=== PATIENT | male | born 1960 | race Caucasian/White ===

== ENCOUNTER 2024-03-18 11:24 | Inpatient (IN) ==
[2024-03-18] MEDS ORDERED: IOPAMIDOL 100 ML BOTTLE IV ONE (11:25)
[2024-03-18] MEDS: 0.9 % SODIUM CHLORIDE 1,000 ML IV ONE (11:39)
[2024-03-18 12:06] LABS: Basophils # (Auto) 0.01 K/mcL (0.00-0.30); Basophils % (Auto) 0.2 % (0.0-2.0); Eosinophils # (Auto) 0 K/mcL (0.00-0.70); Eosinophils % (Auto) 0 % (0.0-7.0); Hematocrit 38.3 % (40.1-51.0); Hemoglobin 13.5 g/dL (13.7-17.5); Lymphocytes # (Auto) 1.66 K/mcL (1.50-4.80); Lymphocytes % (Auto) 32.9 % (15.5-49.0); Mean Cell Volume 103.8 fL (80.0-100.0); Mean Corpuscular HGB Conc 35.2 g/dL (31.0-36.0); Mean Platelet Volume 8.5 fL (8.8-12.5); Monocytes # (Auto) 0.38 K/mcL (0.10-0.90); Monocytes % (Auto) 7.5 % (1.0-12.0); Neutrophils % (Auto) 59.2 % (38.0-78.0); Platelet Count 101 K/mcL (140-440); RBC 3.69 M/mcL (4.63-6.08); WBC 5.1 K/mcL (4.5-11.0)
[2024-03-18 12:19] LABS: ALT/SGPT 28 U/L (<40); AST/SGOT 102 U/L (<40); Albumin 4.1 gm/dL (3.2-5.2); Albumin/Globulin Ratio 1.2 (1.0-2.3); Alkaline Phosphatase 130 U/L (39-117); Bilirubin,Total 2.3 mg/dL (0.1-1.0); Blood Urea Nitrogen 4 mg/dL (8-23); Calcium 7.9 mg/dL (8.6-10.4); Carbon Dioxide 17 mmol/L (22-30); Chloride 96 mmol/L (96-108); Globulin 3.3 gm/dL (2.2-3.7); Glomerular Filtration Rate 114; Glucose 67 mg/dL (70-105); Thyroid Stimulating Hormone 1.71 uIU/mL (0.27-5.01)
[2024-03-18] MEDS: HYDROcodone/APAP 5/325MG TABLET PO ONE (12:21)
[2024-03-18] MEDS: LORazepam 2 MG/ML VIAL IV ONE ×2 (12:21→20:04)
[2024-03-18] MEDS: cloNIDine HCL 0.1 MG TABLET PO SCH (12:22)
[2024-03-18 12:48] LABS: Free T4 (Free Thyroxine) 1.36 ng/dL (0.93-1.70)
[2024-03-18] MEDS: MAGNESIUM SULFATE 2 GM/50 ML BAG IV ONE (12:53)
[2024-03-18] MEDS: POTASSIUM CHLORIDE 20 MEQ TABLET PO ONE ×3 (13:47→22:30)
[2024-03-18] MEDS: MAGNESIUM OXIDE 400 MG TABLET PO ONE (13:47)
[2024-03-18] MEDS: POTASSIUM CHLORIDE 10 MEQ in DEXTROSE 5% IN WATER 250 ML IV ONE (13:54)
[2024-03-18] MEDS: LORazepam (PP) 1 MG TABLET (#4) PO ONE (16:57)
[2024-03-18] MEDS: HYDROcodone/APAP (PP) 5/325MG TABLET (#4) PO ONE (16:58)
[2024-03-18] MEDS: ONDANSETRON 4 MG/2 ML VIAL IV ONE (17:27)
[2024-03-18] MEDS ORDERED: LORazepam 2 MG/ML VIAL IV PRN (17:40)
[2024-03-18] MEDS ORDERED: hydrOXYzine 25 MG TABLET PO PRN (17:40)
[2024-03-18 17:58] LABS: Appearance,Urine Clear (Clear); Bacteria,Urine 0 /hpf (0); Bilirubin,Urine Negative (Negative); Color,Urine Yellow; Culture Indicated,Urine No; Glucose,Urine (UA) Negative (Negative); Ketones,Urine Negative (Negative); Leukocyte Esterase,Urine Negative /uL (Negative); Nitrate,Urine Negative (Negative); Protein,Urine Negative (Negative); Urine Blood Trace-intact ery/mcL (Negative); Urine RBC 0 /hpf (0-3); Urine Squamous Epithelial Cell 0 /hpf (0-4); Urine WBC 1 /hpf (0-4); Urobilinogen,Urine Normal
[2024-03-18] MEDS: THIAMINE 200 MG in 0.9 % SODIUM CHLORIDE 50 ML IV ONE (18:41)
[2024-03-18] MEDS ORDERED: NALOXONE HCL 0.4 MG/ML VIAL IV PRN (19:54)
[2024-03-18] MEDS ORDERED: IPRATROPIUM/ALBUTEROL 3 ML AMPUL.NEB NEB PRN (19:54)
[2024-03-18] MEDS ORDERED: ONDANSETRON 4 MG/2 ML VIAL IV PRN (19:54)
[2024-03-18] MEDS: THIAMINE 100 MG/ML VIAL ONE (19:55)
[2024-03-18] MEDS: MAGNESIUM SULFATE 2 GM/50 ML BAG IV SCH (19:56)
[2024-03-18] MEDS: LACTATED RINGERS 1,000 ML IV SCH (20:04)
[2024-03-18 21:29] LABS: Blood Urea Nitrogen 4 mg/dL (8-23); Calcium 7.1 mg/dL (8.6-10.4); Carbon Dioxide 19 mmol/L (22-30); Chloride 102 mmol/L (96-108); Glomerular Filtration Rate 125; Glucose 95 mg/dL (70-105); Phosphorous 1.9 mg/dL (2.5-4.5)
[2024-03-18] MEDS: oxyCODONE IR 5 MG TABLET PO SCH (21:36)
[2024-03-18] MEDS: 0.9 % SODIUM CHLORIDE 10 ML SYRINGE IV SCH (21:51)
[2024-03-18] MEDS: SODIUM PHOSPHATE 15 MMOL in DEXTROSE 5% IN WATER 250 ML IV ONE (23:00)
[2024-03-19 06:58] LABS: Phosphorous 2.5 mg/dL (2.5-4.5)
[2024-03-19 07:17] LABS: Basophils # (Auto) 0.01 K/mcL (0.00-0.30); Basophils % (Auto) 0.3 % (0.0-2.0); Eosinophils # (Auto) 0 K/mcL (0.00-0.70); Eosinophils % (Auto) 0 % (0.0-7.0); Hematocrit 32.2 % (40.1-51.0); Hemoglobin 11.3 g/dL (13.7-17.5); Lymphocytes # (Auto) 0.95 K/mcL (1.50-4.80); Lymphocytes % (Auto) 25.8 % (15.5-49.0); Mean Cell Volume 104.9 fL (80.0-100.0); Mean Corpuscular HGB Conc 35.1 g/dL (31.0-36.0); Monocytes # (Auto) 0.38 K/mcL (0.10-0.90); Monocytes % (Auto) 10.3 % (1.0-12.0); Neutrophils % (Auto) 63.3 % (38.0-78.0); Platelet Count 64 K/mcL (140-440); RBC 3.07 M/mcL (4.63-6.08); WBC 3.7 K/mcL (4.5-11.0)
[2024-03-19] MEDS: HYDROXYCHLOROQUINE 200 MG TABLET PO SCH (08:04)
[2024-03-19] MEDS: GABAPENTIN 400 MG CAPSULE PO SCH (08:04)
[2024-03-19 08:17] LABS: ALT/SGPT 18 U/L (<40); AST/SGOT 65 U/L (<40); Albumin 3.4 gm/dL (3.2-5.2); Albumin/Globulin Ratio 1.4 (1.0-2.3); Alkaline Phosphatase 93 U/L (39-117); Bilirubin,Total 1.9 mg/dL (0.1-1.0); Blood Urea Nitrogen 4 mg/dL (8-23); Calcium 7.2 mg/dL (8.6-10.4); Carbon Dioxide 21 mmol/L (22-30); Chloride 102 mmol/L (96-108); Globulin 2.4 gm/dL (2.2-3.7); Glomerular Filtration Rate 114; Glucose 103 mg/dL (70-105)
[2024-03-19] MEDS: FERROUS SULFATE 325 MG TABLET PO SCH (08:52)
[2024-03-19] MEDS: ALLOPURINOL 300 MG TABLET PO SCH (08:52)
[2024-03-19] MEDS: CITALOPRAM 20 MG TABLET PO SCH (08:52)
[2024-03-19] MEDS: MULTIVIT,THER IRON,CA,FA & MIN 1 TABLET PO SCH (08:52)
[2024-03-19] MEDS: THIAMINE 200 MG in 0.9 % SODIUM CHLORIDE 50 ML IV SCH (11:33)
[2024-03-19] MEDS: METHOCARBAMOL 500 MG TABLET PO PRN (17:38)
[2024-03-19] MEDS: TAMSULOSIN 0.4 MG CAPSULE PO SCH (20:11)
[2024-03-20 07:17] LABS: Basophils # (Auto) 0.01 K/mcL (0.00-0.30); Basophils % (Auto) 0.3 % (0.0-2.0); Eosinophils # (Auto) 0 K/mcL (0.00-0.70); Eosinophils % (Auto) 0 % (0.0-7.0); Hematocrit 30.2 % (40.1-51.0); Hemoglobin 10.3 g/dL (13.7-17.5); Lymphocytes # (Auto) 0.78 K/mcL (1.50-4.80); Lymphocytes % (Auto) 23.6 % (15.5-49.0); Mean Cell Volume 108.6 fL (80.0-100.0); Mean Corpuscular HGB Conc 34.1 g/dL (31.0-36.0); Mean Platelet Volume 9.9 fL (8.8-12.5); Monocytes # (Auto) 0.32 K/mcL (0.10-0.90); Monocytes % (Auto) 9.7 % (1.0-12.0); Neutrophils % (Auto) 66.1 % (38.0-78.0); Platelet Count 53 K/mcL (140-440); RBC 2.78 M/mcL (4.63-6.08); Red Cell Distribution Width 12.8 % (11.5-14.5); WBC 3.3 K/mcL (4.5-11.0)
[2024-03-20 07:58] LABS: ALT/SGPT 16 U/L (<40); AST/SGOT 54 U/L (<40); Albumin 3.2 gm/dL (3.2-5.2); Albumin/Globulin Ratio 1.4 (1.0-2.3); Alkaline Phosphatase 89 U/L (39-117); Bilirubin,Total 2.1 mg/dL (0.1-1.0); Blood Urea Nitrogen 3 mg/dL (8-23); Calcium 7.4 mg/dL (8.6-10.4); Carbon Dioxide 19 mmol/L (22-30); Chloride 98 mmol/L (96-108); Globulin 2.3 gm/dL (2.2-3.7); Glomerular Filtration Rate 114; Glucose 81 mg/dL (70-105)
[2024-03-20] MEDS: THIAMINE 100 MG/ML VIAL ONE (08:51)
[2024-03-20] MEDS: MAGNESIUM SULFATE 2 GM/50 ML BAG IV SCH (09:57)
[2024-03-21 06:55] LABS: Basophils # (Auto) 0 K/mcL (0.00-0.30); Basophils % (Auto) 0 % (0.0-2.0); Eosinophils # (Auto) 0 K/mcL (0.00-0.70); Eosinophils % (Auto) 0 % (0.0-7.0); Hematocrit 31.1 % (40.1-51.0); Hemoglobin 10.7 g/dL (13.7-17.5); Lymphocytes # (Auto) 0.84 K/mcL (1.50-4.80); Lymphocytes % (Auto) 20.7 % (15.5-49.0); Mean Cell Volume 106.1 fL (80.0-100.0); Mean Corpuscular HGB Conc 34.4 g/dL (31.0-36.0); Mean Platelet Volume 9.4 fL (8.8-12.5); Monocytes # (Auto) 0.35 K/mcL (0.10-0.90); Monocytes % (Auto) 8.6 % (1.0-12.0); Neutrophils % (Auto) 70.2 % (38.0-78.0); Platelet Count 60 K/mcL (140-440); RBC 2.93 M/mcL (4.63-6.08); Red Cell Distribution Width 12.8 % (11.5-14.5); WBC 4.1 K/mcL (4.5-11.0)
[2024-03-21 07:25] LABS: ALT/SGPT 13 U/L (<40); AST/SGOT 44 U/L (<40); Albumin 3.3 gm/dL (3.2-5.2); Albumin/Globulin Ratio 1.3 (1.0-2.3); Alkaline Phosphatase 98 U/L (39-117); Bilirubin,Total 2.2 mg/dL (0.1-1.0); Blood Urea Nitrogen 3 mg/dL (8-23); Calcium 7.9 mg/dL (8.6-10.4); Carbon Dioxide 21 mmol/L (22-30); Chloride 95 mmol/L (96-108); Globulin 2.5 gm/dL (2.2-3.7); Glomerular Filtration Rate 125; Glucose 88 mg/dL (70-105)
[2024-03-21] MEDS: ERGOCALCIFEROL (VITAMIN D2) 50,000 UNIT CAPSULE PO SCH (08:23)
[2024-03-21] MEDS: THIAMINE 100 MG TABLET PO SCH (08:24)
[2024-03-21] MEDS: POTASSIUM CHLORIDE 20 MEQ TABLET PO SCH (10:31)
[2024-03-21] MEDS: MAGNESIUM SULFATE 24.36 MEQ in DEXTROSE 5% IN WATER 50 ML IV ONE (10:31)
[2024-03-21 14:04] LABS: Blood Urea Nitrogen 6 mg/dL (8-23); Calcium 8.2 mg/dL (8.6-10.4); Carbon Dioxide 24 mmol/L (22-30); Chloride 93 mmol/L (96-108); Glomerular Filtration Rate 114; Glucose 135 mg/dL (70-105)
[2024-03-21] MEDS: 0.9 % SODIUM CHLORIDE 1,000 ML IV SCH (14:23)
[2024-03-21] MEDS: POTASSIUM CHLORIDE 20 MEQ TABLET PO ONE ×2 (14:24→18:53)
[2024-03-21 22:38] LABS: Blood Urea Nitrogen 6 mg/dL (8-23); Calcium 8.2 mg/dL (8.6-10.4); Carbon Dioxide 21 mmol/L (22-30); Chloride 97 mmol/L (96-108); Glomerular Filtration Rate 125; Glucose 139 mg/dL (70-105)
[2024-03-21] MEDS: SODIUM CHLORIDE 1 GM TABLET PO ONE (23:48)
[2024-03-22 06:33] LABS: ALT/SGPT 11 U/L (<40); AST/SGOT 33 U/L (<40); Albumin/Globulin Ratio 1.2 (1.0-2.3); Alkaline Phosphatase 106 U/L (39-117); Bilirubin,Total 1.4 mg/dL (0.1-1.0); Blood Urea Nitrogen 5 mg/dL (8-23); Calcium 8.1 mg/dL (8.6-10.4); Carbon Dioxide 22 mmol/L (22-30); Chloride 102 mmol/L (96-108); Globulin 2.6 gm/dL (2.2-3.7); Glomerular Filtration Rate 125; Glucose 92 mg/dL (70-105)
[2024-03-22 06:40] LABS: Basophils # (Auto) 0.01 K/mcL (0.00-0.30); Basophils % (Auto) 0.3 % (0.0-2.0); Eosinophils # (Auto) 0 K/mcL (0.00-0.70); Eosinophils % (Auto) 0 % (0.0-7.0); Hematocrit 28.9 % (40.1-51.0); Hemoglobin 9.8 g/dL (13.7-17.5); Lymphocytes # (Auto) 1.18 K/mcL (1.50-4.80); Lymphocytes % (Auto) 30.7 % (15.5-49.0); Mean Cell Volume 108.2 fL (80.0-100.0); Mean Corpuscular HGB Conc 33.9 g/dL (31.0-36.0); Mean Platelet Volume 9.2 fL (8.8-12.5); Neutrophils % (Auto) 55.2 % (38.0-78.0); Platelet Count 62 K/mcL (140-440); RBC 2.67 M/mcL (4.63-6.08); Red Cell Distribution Width 13.1 % (11.5-14.5); WBC 3.8 K/mcL (4.5-11.0)
[2024-03-22] MEDS: MAGNESIUM SULFATE 2 GM/50 ML BAG IV SCH (08:42)
[2024-03-22] MEDS: MAGNESIUM SULFATE 1 GM/100 ML BAG IV ONE (09:32)
== END 2024-03-22 14:25 | disposition home or self-care (01) | DRG 897 ==
LOC: ED 11:24 → ICU 19:45
PROVIDERS: ADMIT Student in an Organized Health Care Education/Training Program; ATTEND Student in an Organized Health Care Education/Training Program

== ENCOUNTER 2024-12-03 13:34 | Inpatient (IN) ==
[2024-12-03] MEDS: 0.9 % SODIUM CHLORIDE 1,000 ML IV ONE (14:01)
[2024-12-03 14:38] LABS: Basophils # (Auto) 0 K/mcL (0.00-0.30); Basophils % (Auto) 0 % (0.0-2.0); Eosinophils # (Auto) 0 K/mcL (0.00-0.70); Eosinophils % (Auto) 0 % (0.0-7.0); Hematocrit 34.3 % (40.1-51.0); Lymphocytes % (Auto) 8.2 % (15.5-49.0); Mean Cell Volume 102.4 fL (80.0-100.0); Mean Platelet Volume 9.5 fL (8.8-12.5); Monocytes # (Auto) 0.48 K/mcL (0.10-0.90); Monocytes % (Auto) 9.8 % (1.0-12.0); Neutrophils % (Auto) 81.6 % (38.0-78.0); Platelet Count 72 K/mcL (140-440); RBC 3.35 M/mcL (4.63-6.08); Red Cell Distribution Width 14.7 % (11.5-14.5); WBC 4.9 K/mcL (4.5-11.0)
[2024-12-03 14:54] LABS: ALT/SGPT 42 U/L (<40); AST/SGOT 96 U/L (<40); Albumin/Globulin Ratio 1.6 (1.0-2.3); Alkaline Phosphatase 81 U/L (39-117); Bilirubin,Total 3.4 mg/dL (0.1-1.0); Blood Urea Nitrogen 15 mg/dL (8-23); Carbon Dioxide 20 mmol/L (22-30); Chloride 84 mmol/L (96-108); Globulin 2.5 gm/dL (2.2-3.7); Glomerular Filtration Rate 114; Glucose 115 mg/dL (70-105); Potassium 3.6 mmol/L (3.3-5.1); Sodium 123 mmol/L (133-145)
[2024-12-03] MEDS: MAGNESIUM SULFATE 2 GM/50 ML BAG IV ONE (15:13)
[2024-12-03 15:16] LABS: Creatine Kinase 852 U/L (24-195)
[2024-12-03 15:47] LABS: Alcohol, Blood < 10.1 mg/dL; Alcohol,Blood < 0.010 gm/dL (<0.010)
[2024-12-03] MEDS: 0.9 % SODIUM CHLORIDE 500 ML IV ONE (15:51)
[2024-12-03] MEDS: KETOROLAC 30 MG/ML VIAL IV ONE (16:31)
[2024-12-03 20:01] LABS: Amphetamine Screen,Urine None detected; Appearance,Urine CLEAR (Clear); Barbiturate Screen,Urine None detected; Benzodiazepines Screen,Urine None detected; Bilirubin,Urine Negative (Negative); Cannabinoid Screen,Urine None detected; Cocaine Screen,Urine None detected; Color,Urine AMBER; Fentanyl, Urine Screen None Detected; Glucose,Urine (UA) Negative (Negative); Ketones,Urine 5 mg/dL (Negative); Leukocyte Esterase,Urine Negative /uL (Negative); Mucus,Urine MANY /hpf; Nitrate,Urine Negative (Negative); Opiate Screen,Urine Suspect Positive; Oxycodone, Urine Screen None detected; Phencyclidine Screen,Urine None detected; Protein,Urine 100 mg/dL (Negative); Specific Gravity,Urine 1.026 (1.000-1.035); Urine Blood Negative (Negative); Urine Hyaline Cast 13 /lph (0-2); Urine RBC 5 /hpf (0-3); Urine Squamous Epithelial Cell 0 /hpf (0-4); Urine WBC 3 /hpf (0-4)
[2024-12-03] MEDS: THIAMINE 100 MG/ML VIAL ONE (20:05)
[2024-12-03] MEDS: THIAMINE 500 MG in 0.9 % SODIUM CHLORIDE 50 ML IV ONE (20:05)
[2024-12-03] MEDS: HYDROmorphone 1 MG/ML SYRINGE IV ONE (20:05)
[2024-12-03] MEDS ORDERED: ALBUTEROL SULFATE 2.5 MG/3 ML NEBULIZER NEB PRN (21:36)
[2024-12-03] MEDS ORDERED: ACETAMINOPHEN 325 MG TABLET PO PRN (21:36)
[2024-12-03] MEDS: THIAMINE 100 MG in 0.9 % SODIUM CHLORIDE 50 ML IV SCH (22:09)
[2024-12-03] MEDS: LORazepam 2 MG/ML VIAL IV PRN (22:13)
[2024-12-03] MEDS: METOPROLOL TARTRATE 5 MG/5 ML VIAL IV PRN (22:13)
[2024-12-03] MEDS: 0.9 % SODIUM CHLORIDE 10 ML SYRINGE IV SCH ×2 (22:13→22:14)
[2024-12-03] MEDS: SENNOSIDES 1 TABLET PO SCH (22:13)
[2024-12-03] MEDS: DOCUSATE SODIUM 100 MG CAPSULE PO SCH (22:14)
[2024-12-03] MEDS: METOPROLOL TARTRATE 5 MG/5 ML VIAL IV ONE (22:14)
[2024-12-03] MEDS: 0.9 % SODIUM CHLORIDE 1,000 ML IV SCH (22:28)
[2024-12-03] MEDS: METOPROLOL SUCCINATE 50 MG TAB.XL.24H PO SCH (22:51)
[2024-12-03] MEDS: METOPROLOL SUCCINATE 50 MG TAB.XL.24H PO ONE (22:56)
[2024-12-04 07:05] LABS: Basophils # (Auto) 0.01 K/mcL (0.00-0.30); Basophils % (Auto) 0.2 % (0.0-2.0); Eosinophils # (Auto) 0 K/mcL (0.00-0.70); Eosinophils % (Auto) 0 % (0.0-7.0); Hematocrit 30.9 % (40.1-51.0); Hemoglobin 10.9 g/dL (13.7-17.5); Lymphocytes # (Auto) 0.75 K/mcL (1.50-4.80); Lymphocytes % (Auto) 17.9 % (15.5-49.0); Mean Cell Volume 104.7 fL (80.0-100.0); Mean Corpuscular HGB Conc 35.3 g/dL (31.0-36.0); Mean Platelet Volume 9.7 fL (8.8-12.5); Monocytes # (Auto) 0.46 K/mcL (0.10-0.90); Neutrophils % (Auto) 70.7 % (38.0-78.0); Platelet Count 73 K/mcL (140-440); RBC 2.95 M/mcL (4.63-6.08); WBC 4.2 K/mcL (4.5-11.0)
[2024-12-04 07:14] LABS: ALT/SGPT 38 U/L (<40); AST/SGOT 89 U/L (<40); Albumin 3.7 gm/dL (3.2-5.2); Albumin/Globulin Ratio 1.5 (1.0-2.3); Alkaline Phosphatase 72 U/L (39-117); Bilirubin,Direct 1.3 mg/dL (<0.3); Bilirubin,Total 2.8 mg/dL (0.1-1.0); Blood Urea Nitrogen 19 mg/dL (8-23); Calcium 8.6 mg/dL (8.6-10.4); Carbon Dioxide 20 mmol/L (22-30); Chloride 91 mmol/L (96-108); Creatine Kinase 639 U/L (24-195); Globulin 2.4 gm/dL (2.2-3.7); Glomerular Filtration Rate 105; Glucose 80 mg/dL (70-105); Lactate Dehydrogenase 346 U/L (135-225); Phosphorous 2.4 mg/dL (2.5-4.5); Potassium 3.5 mmol/L (3.3-5.1); Sodium 127 mmol/L (133-145); Triglycerides 77 mg/dL (<150); Uric Acid 2.1 mg/dL (2.5-8.0)
[2024-12-04 07:23] LABS: INR 1.5 (0.9-1.1); Prothrombin Time 18.8 sec (11.9-14.5)
[2024-12-04] MEDS: THIAMINE 300 MG in 0.9 % SODIUM CHLORIDE 50 ML IV SCH (07:34)
[2024-12-04] MEDS: DIAZEPAM 5 MG TABLET PO SCH (08:43)
[2024-12-04] MEDS: MULTIVIT,THER IRON,CA,FA & MIN 1 TABLET PO SCH (08:43)
[2024-12-04] MEDS: FOLIC ACID 1 MG TABLET PO SCH (08:43)
[2024-12-04] MEDS ORDERED: THIAMINE 100 MG in 0.9 % SODIUM CHLORIDE 50 ML IV SCH (09:00)
[2024-12-04] MEDS ORDERED: METOPROLOL SUCCINATE 50 MG TAB.XL.24H PO SCH (21:00)
[2024-12-05 07:47] LABS: Basophils # (Auto) 0.01 K/mcL (0.00-0.30); Basophils % (Auto) 0.3 % (0.0-2.0); Eosinophils # (Auto) 0 K/mcL (0.00-0.70); Eosinophils % (Auto) 0 % (0.0-7.0); Hematocrit 30.7 % (40.1-51.0); Hemoglobin 10.6 g/dL (13.7-17.5); Lymphocytes # (Auto) 0.92 K/mcL (1.50-4.80); Lymphocytes % (Auto) 26.1 % (15.5-49.0); Mean Cell Volume 106.2 fL (80.0-100.0); Mean Corpuscular HGB Conc 34.5 g/dL (31.0-36.0); Mean Platelet Volume 9.1 fL (8.8-12.5); Monocytes # (Auto) 0.43 K/mcL (0.10-0.90); Monocytes % (Auto) 12.2 % (1.0-12.0); Neutrophils % (Auto) 60.8 % (38.0-78.0); Platelet Count 60 K/mcL (140-440); RBC 2.89 M/mcL (4.63-6.08); Red Cell Distribution Width 15.3 % (11.5-14.5); WBC 3.5 K/mcL (4.5-11.0)
[2024-12-05 08:09] LABS: ALT/SGPT 35 U/L (<40); AST/SGOT 73 U/L (<40); Albumin 3.5 gm/dL (3.2-5.2); Albumin/Globulin Ratio 1.6 (1.0-2.3); Alkaline Phosphatase 87 U/L (39-117); Bilirubin,Direct 1.4 mg/dL (<0.3); Bilirubin,Total 2.4 mg/dL (0.1-1.0); Blood Urea Nitrogen 17 mg/dL (8-23); Calcium 8.3 mg/dL (8.6-10.4); Carbon Dioxide 17 mmol/L (22-30); Chloride 98 mmol/L (96-108); Creatine Kinase 265 U/L (24-195); Globulin 2.2 gm/dL (2.2-3.7); Glomerular Filtration Rate 114; Glucose 79 mg/dL (70-105); Lactate Dehydrogenase 290 U/L (135-225); Phosphorous 2.4 mg/dL (2.5-4.5); Potassium 3.4 mmol/L (3.3-5.1); Sodium 131 mmol/L (133-145); Triglycerides 63 mg/dL (<150); Uric Acid 2.6 mg/dL (2.5-8.0)
[2024-12-05] MEDS ORDERED: METOPROLOL SUCCINATE 50 MG TAB.XL.24H PO SCH (09:00)
[2024-12-05] MEDS: POTASSIUM CHLORIDE 20 MEQ PACKET PO SCH (10:21)
[2024-12-05] MEDS: MAGNESIUM OXIDE 400 MG TABLET PO SCH (10:21)
[2024-12-05] MEDS: CITALOPRAM 20 MG TABLET PO SCH (10:21)
[2024-12-05] MEDS: ALLOPURINOL 300 MG TABLET PO SCH (10:21)
[2024-12-05] MEDS: HYDROXYCHLOROQUINE 200 MG TABLET PO SCH (10:21)
[2024-12-05] MEDS: FERROUS SULFATE 325 MG TABLET PO SCH (10:21)
[2024-12-05] MEDS: METHOCARBAMOL 500 MG TABLET PO SCH (10:21)
[2024-12-05] MEDS: MAGNESIUM SULFATE 1 GM/100 ML BAG IV ONE (12:43)
[2024-12-05] MEDS: POTASSIUM CHLORIDE 10 MEQ/100 ML BAG IV SCH (12:43)
[2024-12-05] MEDS: POTASSIUM CHLORIDE 20 MEQ in DEXTROSE 5% IN WATER 250 ML IV ONE (15:19)
[2024-12-05] MEDS: RIVAROXABAN 20 MG TABLET PO SCH (21:14)
[2024-12-05] MEDS: GABAPENTIN 400 MG CAPSULE PO SCH (21:15)
[2024-12-05] MEDS: TAMSULOSIN 0.4 MG CAPSULE PO SCH (21:15)
[2024-12-06 06:17] LABS: Creatine Kinase 134 U/L (24-195)
[2024-12-06 06:18] LABS: ALT/SGPT 31 U/L (<40); AST/SGOT 51 U/L (<40); Albumin 3.4 gm/dL (3.2-5.2); Albumin/Globulin Ratio 1.5 (1.0-2.3); Alkaline Phosphatase 81 U/L (39-117); Bilirubin,Direct 1.3 mg/dL (<0.3); Bilirubin,Total 2.2 mg/dL (0.1-1.0); Blood Urea Nitrogen 12 mg/dL (8-23); Calcium 8.2 mg/dL (8.6-10.4); Carbon Dioxide 18 mmol/L (22-30); Chloride 99 mmol/L (96-108); Globulin 2.3 gm/dL (2.2-3.7); Glomerular Filtration Rate 114; Glucose 124 mg/dL (70-105); Lactate Dehydrogenase 273 U/L (135-225); Phosphorous 2.5 mg/dL (2.5-4.5); Potassium 3.5 mmol/L (3.3-5.1); Sodium 130 mmol/L (133-145); Triglycerides 59 mg/dL (<150); Uric Acid 2.3 mg/dL (2.5-8.0)
[2024-12-06 06:57] LABS: Basophils # (Auto) 0.01 K/mcL (0.00-0.30); Basophils % (Auto) 0.3 % (0.0-2.0); Eosinophils # (Auto) 0 K/mcL (0.00-0.70); Eosinophils % (Auto) 0 % (0.0-7.0); Hematocrit 32.2 % (40.1-51.0); Hemoglobin 10.9 g/dL (13.7-17.5); Lymphocytes # (Auto) 0.72 K/mcL (1.50-4.80); Lymphocytes % (Auto) 22.8 % (15.5-49.0); Mean Cell Volume 108.1 fL (80.0-100.0); Mean Corpuscular HGB Conc 33.9 g/dL (31.0-36.0); Mean Platelet Volume 9.6 fL (8.8-12.5); Monocytes # (Auto) 0.52 K/mcL (0.10-0.90); Monocytes % (Auto) 16.5 % (1.0-12.0); Neutrophils % (Auto) 60.1 % (38.0-78.0); Platelet Count 61 K/mcL (140-440); RBC 2.98 M/mcL (4.63-6.08); Red Cell Distribution Width 15.8 % (11.5-14.5); WBC 3.2 K/mcL (4.5-11.0)
[2024-12-06] MEDS: MAGNESIUM SULFATE 1 GM/100 ML BAG IV ONE (07:22)
[2024-12-06] MEDS ORDERED: METOPROLOL TARTRATE 5 MG/5 ML VIAL IV PRN (10:35)
[2024-12-06] MEDS: 0.9 % SODIUM CHLORIDE 1,000 ML IV ONE (11:19)
[2024-12-06] MEDS: 0.9 % SODIUM CHLORIDE 1,000 ML IV SCH (12:50)
[2024-12-07 07:15] LABS: Basophils # (Auto) 0.01 K/mcL (0.00-0.30); Basophils % (Auto) 0.3 % (0.0-2.0); Eosinophils # (Auto) 0 K/mcL (0.00-0.70); Eosinophils % (Auto) 0 % (0.0-7.0); Hematocrit 35.3 % (40.1-51.0); Hemoglobin 10.8 g/dL (13.7-17.5); Lymphocytes # (Auto) 0.74 K/mcL (1.50-4.80); Lymphocytes % (Auto) 25.1 % (15.5-49.0); Mean Cell Volume 121.3 fL (80.0-100.0); Mean Corpuscular HGB Conc 30.6 g/dL (31.0-36.0); Mean Platelet Volume 9.5 fL (8.8-12.5); Monocytes # (Auto) 0.48 K/mcL (0.10-0.90); Monocytes % (Auto) 16.3 % (1.0-12.0); Platelet Count 60 K/mcL (140-440); RBC 2.91 M/mcL (4.63-6.08); Red Cell Distribution Width 16.4 % (11.5-14.5)
[2024-12-07 07:25] LABS: ALT/SGPT 29 U/L (<40); AST/SGOT 45 U/L (<40); Albumin 3.2 gm/dL (3.2-5.2); Albumin/Globulin Ratio 1.5 (1.0-2.3); Alkaline Phosphatase 90 U/L (39-117); Bilirubin,Direct 1.1 mg/dL (<0.3); Blood Urea Nitrogen 11 mg/dL (8-23); Calcium 8.2 mg/dL (8.6-10.4); Carbon Dioxide 16 mmol/L (22-30); Chloride 101 mmol/L (96-108); Globulin 2.1 gm/dL (2.2-3.7); Glomerular Filtration Rate 114; Glucose 109 mg/dL (70-105); Lactate Dehydrogenase 293 U/L (135-225); Phosphorous 2.6 mg/dL (2.5-4.5); Potassium 3.8 mmol/L (3.3-5.1); Sodium 130 mmol/L (133-145); Triglycerides 47 mg/dL (<150); Uric Acid 2.1 mg/dL (2.5-8.0)
[2024-12-07] MEDS ORDERED: METOPROLOL TARTRATE 5 MG/5 ML VIAL IV PRN (08:24)
[2024-12-07] MEDS: THIAMINE 250 MG in 0.9 % SODIUM CHLORIDE 50 ML IV SCH (08:43)
[2024-12-07] MEDS: SODIUM BICARBONATE 650 MG TABLET PO SCH (09:16)
[2024-12-07] MEDS: POTASSIUM CHLORIDE 20 MEQ TABLET PO SCH (10:55)
[2024-12-07] MEDS: ALBUMIN HUMAN 12.5 GM/50 ML VIAL IV ONE (12:03)
[2024-12-07] MEDS: FUROSEMIDE 40 MG/4 ML VIAL IV ONE (12:52)
[2024-12-07] MEDS: HYDROcodone/APAP 5/325MG TABLET PO PRN (18:22)
[2024-12-08 07:00] LABS: ALT/SGPT 25 U/L (<40); AST/SGOT 35 U/L (<40); Albumin 3.3 gm/dL (3.2-5.2); Albumin/Globulin Ratio 1.4 (1.0-2.3); Alkaline Phosphatase 90 U/L (39-117); Bilirubin,Direct 1.2 mg/dL (<0.3); Bilirubin,Total 2.2 mg/dL (0.1-1.0); Blood Urea Nitrogen 10 mg/dL (8-23); Calcium 8.4 mg/dL (8.6-10.4); Carbon Dioxide 20 mmol/L (22-30); Chloride 98 mmol/L (96-108); Globulin 2.3 gm/dL (2.2-3.7); Glomerular Filtration Rate 114; Glucose 89 mg/dL (70-105); Lactate Dehydrogenase 246 U/L (135-225); Phosphorous 3.4 mg/dL (2.5-4.5); Potassium 3.7 mmol/L (3.3-5.1); Sodium 132 mmol/L (133-145); Triglycerides 45 mg/dL (<150); Uric Acid 2.3 mg/dL (2.5-8.0)
[2024-12-08] MEDS: LOPERAMIDE 2 MG CAPSULE PO ONE (10:03)
[2024-12-08] MEDS: FUROSEMIDE 40 MG/4 ML VIAL IV ONE (10:03)
[2024-12-08] MEDS: SODIUM BICARBONATE 650 MG TABLET PO SCH (10:03)
[2024-12-08] MEDS: ALBUMIN HUMAN 12.5 GM/50 ML VIAL IV ONE (10:05)
[2024-12-08] MEDS: MAGNESIUM SULFATE 2 GM/50 ML BAG IV ONE (10:08)
[2024-12-09 06:13] LABS: ALT/SGPT 24 U/L (<40); AST/SGOT 31 U/L (<40); Albumin 3.4 gm/dL (3.2-5.2); Albumin/Globulin Ratio 1.5 (1.0-2.3); Alkaline Phosphatase 106 U/L (39-117); Bilirubin,Direct 1.1 mg/dL (<0.3); Bilirubin,Total 1.9 mg/dL (0.1-1.0); Blood Urea Nitrogen 11 mg/dL (8-23); Calcium 8.6 mg/dL (8.6-10.4); Carbon Dioxide 25 mmol/L (22-30); Chloride 91 mmol/L (96-108); Globulin 2.3 gm/dL (2.2-3.7); Glomerular Filtration Rate 114; Glucose 83 mg/dL (70-105); Lactate Dehydrogenase 241 U/L (135-225); Phosphorous 4.1 mg/dL (2.5-4.5); Potassium 3.6 mmol/L (3.3-5.1); Sodium 128 mmol/L (133-145); Triglycerides 49 mg/dL (<150); Uric Acid 2.3 mg/dL (2.5-8.0)
[2024-12-09] MEDS: MAGNESIUM SULFATE 2 GM/50 ML BAG IV ONE (09:01)
[2024-12-09] MEDS: MAGNESIUM SULFATE 1 GM/100 ML BAG IV ONE (20:51)
[2024-12-09] MEDS: MAGNESIUM SULFATE 8.12 MEQ/2 ML VIAL ONE (21:05)
[2024-12-10 06:27] LABS: ALT/SGPT 22 U/L (<40); AST/SGOT 32 U/L (<40); Albumin 3.2 gm/dL (3.2-5.2); Albumin/Globulin Ratio 1.3 (1.0-2.3); Alkaline Phosphatase 114 U/L (39-117); Bilirubin,Direct 0.8 mg/dL (<0.3); Bilirubin,Total 1.4 mg/dL (0.1-1.0); Blood Urea Nitrogen 8 mg/dL (8-23); Calcium 8.4 mg/dL (8.6-10.4); Carbon Dioxide 20 mmol/L (22-30); Chloride 92 mmol/L (96-108); Globulin 2.4 gm/dL (2.2-3.7); Glomerular Filtration Rate 114; Glucose 85 mg/dL (70-105); Lactate Dehydrogenase 241 U/L (135-225); Phosphorous 4.2 mg/dL (2.5-4.5); Sodium 125 mmol/L (133-145); Triglycerides 49 mg/dL (<150); Uric Acid 2.1 mg/dL (2.5-8.0)
[2024-12-10] MEDS: THIAMINE 100 MG/ML VIAL ONE (08:38)
[2024-12-10] MEDS: MIDODRINE 5 MG TABLET PO SCH (08:42)
[2024-12-10 10:45] LABS: Basophils # (Auto) 0.01 K/mcL (0.00-0.30); Basophils % (Auto) 0.5 % (0.0-2.0); Eosinophils # (Auto) 0 K/mcL (0.00-0.70); Eosinophils % (Auto) 0 % (0.0-7.0); Hematocrit 27.5 % (40.1-51.0); Hemoglobin 9.2 g/dL (13.7-17.5); Lymphocytes # (Auto) 0.58 K/mcL (1.50-4.80); Lymphocytes % (Auto) 31.2 % (15.5-49.0); Mean Cell Volume 108.3 fL (80.0-100.0); Mean Corpuscular HGB Conc 33.5 g/dL (31.0-36.0); Monocytes # (Auto) 0.32 K/mcL (0.10-0.90); Monocytes % (Auto) 17.2 % (1.0-12.0); Neutrophils % (Auto) 50.6 % (38.0-78.0); Platelet Count 62 K/mcL (140-440); RBC 2.54 M/mcL (4.63-6.08); Red Cell Distribution Width 15.8 % (11.5-14.5); WBC 1.9 K/mcL (4.5-11.0)
[2024-12-10] MEDS: FUROSEMIDE 40 MG/4 ML VIAL IV SCH (11:48)
[2024-12-10] MEDS: ALBUMIN HUMAN 12.5 GM/50 ML VIAL IV SCH (11:48)
[2024-12-10 20:01] LABS: Sodium 128 mmol/L (133-145)
[2024-12-10 22:08] LABS: Opiate Screen Positive ng/mL (Cutoff=300)
[2024-12-11] MEDS: oxyCODONE IR 5 MG TABLET PO PRN (04:53)
[2024-12-11 05:52] LABS: Hematocrit 26.8 % (40.1-51.0); Hemoglobin 9.1 g/dL (13.7-17.5); Mean Cell Volume 108.1 fL (80.0-100.0); Mean Platelet Volume 9.4 fL (8.8-12.5); Platelet Count 63 K/mcL (140-440); RBC 2.48 M/mcL (4.63-6.08); Red Cell Distribution Width 15.6 % (11.5-14.5); WBC 1.9 K/mcL (4.5-11.0)
[2024-12-11 06:13] LABS: ALT/SGPT 20 U/L (<40); AST/SGOT 32 U/L (<40); Albumin 3.3 gm/dL (3.2-5.2); Albumin/Globulin Ratio 1.3 (1.0-2.3); Alkaline Phosphatase 131 U/L (39-117); Bilirubin,Direct 0.8 mg/dL (<0.3); Bilirubin,Total 1.2 mg/dL (0.1-1.0); Blood Urea Nitrogen 9 mg/dL (8-23); Calcium 8.7 mg/dL (8.6-10.4); Carbon Dioxide 27 mmol/L (22-30); Chloride 90 mmol/L (96-108); Globulin 2.5 gm/dL (2.2-3.7); Glomerular Filtration Rate 114; Glucose 90 mg/dL (70-105); Lactate Dehydrogenase 262 U/L (135-225); Phosphorous 4.3 mg/dL (2.5-4.5); Potassium 3.7 mmol/L (3.3-5.1); Sodium 127 mmol/L (133-145); Triglycerides 45 mg/dL (<150); Uric Acid 2.2 mg/dL (2.5-8.0)
[2024-12-11 07:58] LABS: Anisocytosis 1+ (None Seen); Band Neutrophils % 4 % (0-10); Lymphocytes % 35 % (15-49); Macrocytosis 1+ (None Seen); Platelet Estimate NORMAL (Normal); Polychromasia 1+ (None Seen); RBC Morphology ABNORMAL (Normal); Reactive Lymphocytes 12 % (0-2); Segmented Neutrophils % 49 % (38-78); Target Cells RARE (None Seen)
[2024-12-11] MEDS: MIDODRINE 5 MG TABLET PO SCH (09:09)
[2024-12-11] MEDS: MAGNESIUM SULFATE 2 GM/50 ML BAG IV ONE (09:24)
[2024-12-11 18:02] LABS: ALT/SGPT 20 U/L (<40); AST/SGOT 34 U/L (<40); Albumin 3.3 gm/dL (3.2-5.2); Albumin/Globulin Ratio 1.3 (1.0-2.3); Alkaline Phosphatase 138 U/L (39-117); Bilirubin,Direct 0.7 mg/dL (<0.3); Bilirubin,Total 1.1 mg/dL (0.1-1.0); Blood Urea Nitrogen 8 mg/dL (8-23); Calcium 8.6 mg/dL (8.6-10.4); Carbon Dioxide 26 mmol/L (22-30); Chloride 88 mmol/L (96-108); Globulin 2.5 gm/dL (2.2-3.7); Glomerular Filtration Rate 114; Glucose 101 mg/dL (70-105); Lactate Dehydrogenase 229 U/L (135-225); Potassium 3.8 mmol/L (3.3-5.1); Sodium 124 mmol/L (133-145); Triglycerides 42 mg/dL (<150); Uric Acid 1.9 mg/dL (2.5-8.0)
[2024-12-11] MEDS: SODIUM CHLORIDE 1 GM TABLET PO SCH (19:33)
[2024-12-11] MEDS: 0.9 % SODIUM CHLORIDE 1,000 ML IV SCH (19:33)
[2024-12-11] MEDS: ONDANSETRON 4 MG/2 ML VIAL IV PRN (19:53)
[2024-12-12 06:47] LABS: Basophils # (Auto) 0.01 K/mcL (0.00-0.30); Basophils % (Auto) 0.5 % (0.0-2.0); Eosinophils # (Auto) 0 K/mcL (0.00-0.70); Eosinophils % (Auto) 0 % (0.0-7.0); Hematocrit 28.8 % (40.1-51.0); Hemoglobin 9.5 g/dL (13.7-17.5); Lymphocytes # (Auto) 0.53 K/mcL (1.50-4.80); Lymphocytes % (Auto) 27.5 % (15.5-49.0); Mean Cell Volume 110.8 fL (80.0-100.0); Mean Platelet Volume 9.9 fL (8.8-12.5); Monocytes # (Auto) 0.26 K/mcL (0.10-0.90); Monocytes % (Auto) 13.5 % (1.0-12.0); Neutrophils % (Auto) 58.5 % (38.0-78.0); Platelet Count 73 K/mcL (140-440); Red Cell Distribution Width 15.7 % (11.5-14.5); WBC 1.9 K/mcL (4.5-11.0)
[2024-12-12 06:54] LABS: ALT/SGPT 19 U/L (<40); AST/SGOT 33 U/L (<40); Albumin 3.4 gm/dL (3.2-5.2); Albumin/Globulin Ratio 1.3 (1.0-2.3); Alkaline Phosphatase 138 U/L (39-117); Bilirubin,Direct 0.7 mg/dL (<0.3); Bilirubin,Total 1.1 mg/dL (0.1-1.0); Blood Urea Nitrogen 8 mg/dL (8-23); Calcium 8.7 mg/dL (8.6-10.4); Carbon Dioxide 27 mmol/L (22-30); Chloride 93 mmol/L (96-108); Globulin 2.6 gm/dL (2.2-3.7); Glomerular Filtration Rate 114; Glucose 95 mg/dL (70-105); Lactate Dehydrogenase 215 U/L (135-225); Phosphorous 3.2 mg/dL (2.5-4.5); Potassium 3.9 mmol/L (3.3-5.1); Sodium 130 mmol/L (133-145); Triglycerides 47 mg/dL (<150); Uric Acid 2.1 mg/dL (2.5-8.0)
== END 2024-12-12 15:15 | DRG 896 ==
LOC: ED 13:34 → ICU 21:33 → MEDSUR 12-06 15:45
PROVIDERS: ADMIT Internal Medicine; ATTEND Student in an Organized Health Care Education/Training Program